=== PATIENT | male | born 1945 | race Caucasian/White ===

== ENCOUNTER → 2018-10-01 | Outpatient (CLI) | payer OTHER ==
[~2018-10-01] MED LIST: HCTZ 25MG TAB25 MG PO; NORCO 325 MG-7.1 TAB PO; PRAVACHOL10 MG PO; PRAVACHOL80 MG PO; PRINIVIL40 MG PO; RAPAFLO8 MG PO; ROXICODONE 55 MG/TAB PO; XARELTO10 MG PO
== END ==
LOC: BHSO 09:47
DX: G47.00 Insomnia, unspecified (principal)

== ENCOUNTER → 2018-11-02 | Outpatient (CLI) | payer OTHER | LOC: BHSO 09:55 | DX: G47.00 Insomnia, unspecified (principal) ==

== ENCOUNTER 2020-06-21 05:30 | Day surgery (SDC) | payer MEDICARE ==
[~2020-06-21] VITALS: Ht 195.8 cm; Wt 109.7 kg
[2020-06-21] MEDS ORDERED: ZESTRIL40 MG PO (18:17)
[2020-06-21] MEDS ORDERED: HCTZ 25MG TAB25 MG PO (18:17)
[2020-06-21] MEDS ORDERED: RAPAFLO8 MG PO (18:17)
[2020-06-21] MEDS ORDERED: MOBIC15 MG PO (18:18)
[2020-06-21] MEDS ORDERED: VITAMIN C500 MG PO (18:18)
[2020-06-21] MEDS ORDERED: PRAVACHOL80 MG PO (18:18)
[2020-06-21] MEDS ORDERED: FERROUSAL325 MG PO (18:18)
[2020-06-21] MEDS ORDERED: FOLIC ACID0.4 MG PO (18:19)
--- NOTE | 2020-06-21 19:30 | NUR ---
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 Assessment complete. A&Ox3. Rating pain 6/10 on pain scale-described as constant throbbing-oxycodone given per dr order. Dressing to left lower extremity CDI-bulky white/dana. SCDs/TEDs bilat. Fresh ice pack applied to site and elevated on pillows. Plan of care discussed for this shift to include HS meds/pain control/ambulation. Verbalizes understanding/denies needs. Call light in reach. Will monitor.
[2020-06-21 20:00] VITALS: BP 122/56; PULSE 67; TEMP 97.9
--- NOTE | 2020-06-21 22:00 | NUR ---
Up to ambulate at this time with gait belt/walker/stand by assist. Ambulated approx 250 feet. Assisted back to bed-left lower extremity elevated on pillows/fresh ice pack applied. Call light in reach. Will monitor.
[2020-06-21 23:24] VITALS: BP 122/56; PULSE 62; TEMP 97.5
--- NOTE | 2020-06-21 23:42 | NUR ---
Called with c/o pain to left lower extremity-described as throbbing-rating pain 11/04. Oxycodone given per dr bernstein.
[2020-06-22] VITALS (7 sets, daily range): BP systolic 125–178; BP diastolic 55–82; PULSE 61–74; TEMP 97.4–98.1
--- NOTE | 2020-06-22 04:00 | NUR ---
Up to bathroom at this time with stand by assist/gait belt/walker. Voided with out difficulty.
--- NOTE | 2020-06-22 05:11 | NUR ---
Verified patient allergies with patient as [place] has been ordered and chart states he is allergic to norco. Patient states he is not allergic to hydrocodone and that it actually helped his pain more than the oxycodone. Allergy removed from record.
[2020-06-22 06:49] LABS: HEMOGLOBIN 10.8 g/dl (13.5-18.0)
[2020-06-22 06:55] LABS: HEMATOCRIT 32.3 % (42.0-52.0)
--- NOTE | 2020-06-22 07:00 | NUR ---
awake resting in bed, bedside shift report received from LISSY Blackwood
--- NOTE | 2020-06-22 07:45 | NUR ---
full assessment completed, have reviewed assessment completed by student and in agreement with that assessment
--- NOTE | 2020-06-22 07:45 | NUR ---
c/o minimal pain to left knee and requesting pain med, medicated with hydrocodone 7.5mg 2 tabs
--- NOTE | 2020-06-22 09:15 | NUR ---
ambulating in [place] with [facility]
--- NOTE | 2020-06-22 11:38 | NUR ---
TORI met with the patient and his , [employer] (ph#[phone]), to discuss discharge plan. The patient lives in [place] with his , Akosua. He reports independence with ADLs and has a walker and crutches. His PCP is Dr. Ana Domingo and he receives his medications from [email or web address]. He reports no difficulties obtaining his meds. The patient does not have a DPOA-HC in EMR, but he states that he does have one completed and at home. He states that his is his DPOA-HC. The patient plans to return home with his and receive outpatient PT at [facility] upon discharge. No additional needs at this time.
--- NOTE | 2020-06-22 13:04 | NUR ---
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 No needs right now.
--- NOTE | 2020-06-22 13:11 | NUR ---
bedside shift report given to LISSY Spicer
--- NOTE | 2020-06-22 13:21 | NUR ---
Received report fron LISSY Aguilar, assumed care of Pt.
--- NOTE | 2020-06-22 13:33 | NUR ---
Patient is currently resting in bed after working with physical therapy and occupational therapy. Pedal pulses are readily palpable. Dressing and incision are clean dry and intact. No further requests at this times. Call light is within easy reach.
--- NOTE | 2020-06-22 13:52 | NUR ---
Pt has C/O pain 8/10, 2 mg morphine given with good results.
--- NOTE | 2020-06-22 16:10 | NUR ---
Rounded on Pt, Pt had C/O pain 12/05, medications were given for relief.
--- NOTE | 2020-06-22 16:30 | NUR ---
Pt had nausea / vomiting, zofran given for relief.
--- NOTE | 2020-06-22 17:48 | NUR ---
Checked Pt, pain level 8/10, medications given for relief.
--- NOTE | 2020-06-22 20:46 | NUR ---
Patient resting in bed ready to go to sleep. States he has not slept well the last couple nights. Patient given extra pillow for his neck. Night medications given. Patient states his pain is tolerable right now but he will call when he needs something for it. Aquacell to left knee clean, dry, and intact. SCDs and teds on. CPAP on. Patient has no other needs at this time. Call light in reach.
[2020-06-23 04:00] VITALS: BP 159/62; PULSE 69; TEMP 97.3
[2020-06-23] MEDS ORDERED: ASPI325T6 PO (06:43)
[2020-06-23] MEDS ORDERED: NORCO 325 MG-7.1 TAB PO (06:44)
[2020-06-23] MEDS ORDERED: ROXICODONE 55 MG/TAB PO (06:44)
[2020-06-23] MEDS ORDERED: SENOKOT S 50 MG1 TAB PO (06:46)
--- NOTE | 2020-06-23 07:20 | NUR ---
Assessment completed. Patient stated "I feel better than I have since I have been here and slept great." Up with assistance to bathroom to void. ambulated well with walker. Eduation provided on increased physical activity to decrease constipation.
[2020-06-23 07:25] VITALS: BP 144/67; PULSE 66; TEMP 97.5
--- NOTE | 2020-06-23 10:31 | NUR ---
CHECKED ON PT AFTER THERAPY AND PT REPORTS PAIN WELL CONTROLLED AT THIS TIME AND DOESNT WANT MEDICATION.
[2020-06-23 12:00] VITALS: BP 132/62; PULSE 65; TEMP 97.8
--- NOTE | 2020-06-23 14:51 | NUR ---
REVIEWED DISCHARGE INSTRUCTIONS WITH PT AND SPOUSE. QUESTIONS ANSWERED.PT TAKEN TO FRONT VIA WC.
== END 2020-06-23 14:10 | disposition home or self-care (01) ==
LOC: SDCO 05:30 → SURG 05:30 → INPTSU 05:30 → EDSTATUS 07:30 → SURG 07:30 → INPTSU 13:00 → SURG 13:00 → SDCO 06-23 14:10 → SURG 06-23 14:10
PROVIDERS: Orthopaedic Surgery
DX: M17.12 Unilateral primary osteoarthritis, left knee (principal); E78.00 Pure hypercholesterolemia, unspecified; I10 Essential (primary) hypertension; G47.33 Obstructive sleep apnea (adult) (pediatric); Z20.822 Contact with and (suspected) exposure to COVID-19; Z87.891 Personal history of nicotine dependence; Z79.899 Other long term (current) drug therapy; Z79.82 Long term (current) use of aspirin; Z88.6 Allergy status to analgesic agent
CPT/HCPCS: OP; A9284; C1776; J0690; J2250; J2270; J2405; J2704; J2765; J3010; J7120

== ENCOUNTER → 2020-07-06 | Outpatient (CLI) | payer MEDICARE ==
[~2020-07-06] MED LIST changes: +ASPI325T6 PO; +FERROUSAL325 MG PO; +FOLIC ACID0.4 MG PO; +LOPRESSOR 225 MG/TAB PO; +MOBIC15 MG PO; +SENOKOT S 50 MG1 TAB PO; +VITAMIN C500 MG PO; +ZESTRIL40 MG PO
== END ==
LOC: COL.RAD
DX: I65.23 Occlusion and stenosis of bilateral carotid arteries (principal); I25.10 Atherosclerotic heart disease of native coronary artery without angina pectoris
CPT/HCPCS: Q9967

== ENCOUNTER 2020-08-26 14:14 | Emergency (ER) | payer MEDICARE ==
[~2020-08-26] VITALS: Ht 195.6 cm; Wt 110.9 kg
[~2020-08-26 14:14] MED LIST changes: -LOPRESSOR 225 MG/TAB PO
[2020-08-26 14:22] VITALS: TEMP 98.2
[2020-08-26 14:49] LABS: BASO # 0.1 (0.0-0.2); BASO % 0.6 % (0.0-2.0); EOS # 0.4 (0.0-0.7); EOS % 4.6 % (0-4.0); GRAN # 5.4 (1.4-6.5); GRAN % 64.6 % (42.2-75.2); HEMATOCRIT 37.2 % (42.0-52.0); HEMOGLOBIN 12.3 g/dl (13.5-18.0); LYMPH # 1.5 (1.2-3.4); LYMPH % 17.7 % (20.0-51.0); MEAN CELL VOLUME 86 fl (80.0-100.0); MEAN CORPUSCULAR HEMOGLOBIN 28 pg (27.0-31.0); MEAN CORPUSCULAR HGB CONC 33 g/dl (33.0-37.0); MEAN PLATELET VOLUME 8.9 fl (7.4-10.4); MONO % 12.3 % (1.7-9.3); PLATELET COUNT 267 K/mm3 (130-400); RED BLOOD COUNT 4.33 M/mm3 (4.20-5.60); REDCELL DISTRIBUTION WIDTH-CV 13.4 % (11.5-14.5)
[2020-08-26 15:03] LABS: ALBUMIN 4.3 gm/dL (3.5-5.0); BILIRUBIN,TOTAL 0.5 mg/dL (0.0-1.0); CALCIUM 9.3 mg/dL (8.4-10.2); CREATININE, serum 0.82 (0.66-1.25); MAGNESIUM 1.8 mg/dL (1.6-2.3); TOTAL PROTEIN 7.9 gm/dL (6.4-8.2)
[2020-08-26 15:13] LABS: TROPONIN-I 0.013 ng/mL (0.000-0.035)
[2020-08-26 15:32] LABS: TSH w REFLEX 5.3 uIU/mL (0.465-4.680)
[2020-08-26] MEDS ORDERED: LOPRESSOR 225 MG/TAB PO (16:51)
[2020-08-26 17:04] VITALS: BP 162/78; PULSE 80
== END 2020-08-26 17:08 | disposition home or self-care (01) ==
LOC: COL.ER 14:14
PROVIDERS: Emergency Medicine
DX: R00.2 Palpitations (principal); Z87.891 Personal history of nicotine dependence; Z79.02 Long term (current) use of antithrombotics/antiplatelets; Z79.82 Long term (current) use of aspirin

== ENCOUNTER → 2021-12-04 | Outpatient (CLI) | payer MEDICARE ==
[~2021-12-04] MED LIST changes: +LOPRESSOR 225 MG/TAB PO
== END ==
LOC: COL.RAD 13:31
DX: M50.11 Cervical disc disorder with radiculopathy, high cervical region (principal); M50.121 Cervical disc disorder at C4-C5 level with radiculopathy; M50.122 Cervical disc disorder at C5-C6 level with radiculopathy; M50.123 Cervical disc disorder at C6-C7 level with radiculopathy; M48.02 Spinal stenosis, cervical region

== ENCOUNTER → 2023-04-08 | Outpatient (CLI) | payer MEDICARE ==
[~2023-04-08] MED LIST changes: +ASPIRIN E.C. 8181 MG PO; +COMPLETE MULTI1 TAB PO; +CRESTOR40 MG PO; +ELIQUIS 5MG PO; +TOPROL XL 50MG50 MG PO
== END ==
LOC: COL.RAD 12:41
DX: M25.552 Pain in left hip (principal)
CPT/HCPCS: J0665; J3301; Q9967

== ENCOUNTER 2023-12-04 05:53 | Emergency (ER) | payer MEDICARE ==
[~2023-12-04] VITALS: Ht 188 cm; Wt 110.5 kg
[2023-12-04 05:56] VITALS: TEMP 98.2
[2023-12-04 06:11] LABS: BASO % 0.7 % (0.0-2.0); EOS # 0.3 K/mm3 (0.0-0.7); EOS % 4.8 % (0.0-4.0); GRAN # 2.5 K/mm3 (1.4-6.5); GRAN % 45.1 % (42.2-75.2); HEMATOCRIT 39.5 % (42.0-52.0); HEMOGLOBIN 13.2 g/dl (13.5-18.0); LYMPH # 2.1 K/mm3 (1.2-3.4); LYMPH % 37.7 % (20.0-51.0); MEAN CELL VOLUME 88 fl (80.0-100.0); MEAN CORPUSCULAR HEMOGLOBIN 30 pg (27-31); MEAN CORPUSCULAR HGB CONC 33 g/dl (33.0-37.0); MEAN PLATELET VOLUME 8.7 fl (7.4-10.4); MONO # 0.6 K/mm3 (0.1-0.6); MONO % 11.7 % (1.7-9.3); PLATELET COUNT 224 K/mm3 (130-400); RED BLOOD COUNT 4.48 M/mm3 (4.20-5.60); REDCELL DISTRIBUTION WIDTH-CV 13.2 % (11.5-14.5)
[2023-12-04] MEDS ORDERED: Metoprolol Tartrate 5 MG/5 ML VIAL IV ONE ×2 (06:15→06:45)
[2023-12-04] MEDS ORDERED: NS 1,000 ML IV ONE (06:15)
[2023-12-04 06:31] LABS: ALANINE AMINOTRANSFERASE 21 U/L (0-55); ALBUMIN 4.2 g/dL (3.4-4.8); ALKALINE PHOSPHATASE 85 U/L (40-150); ANION GAP 12 mmol/L (7-16); AST,SGOT 34 U/L (5-34); BILIRUBIN,TOTAL 0.4 mg/dL (0.2-1.2); BLOOD UREA NITROGEN 23 mg/dL (8-26); CALCIUM 9.7 mg/dL (8.4-10.2); CHLORIDE 104 mEq/L (98-107); CREATININE, serum 0.98 mg/dL (0.72-1.25); GLUCOSE 107 mg/dL (70-99); POTASSIUM 4.4 mEq/L (3.5-4.5); SODIUM 140 mEq/L (136-145); TOTAL PROTEIN 7.8 g/dl (6.2-8.1)
[2023-12-04 06:36] LABS: INR 1.2 (0.8-3.0); PROTHROMBIN TIME 12.8 SECONDS (9.7-12.8)
[2023-12-04 06:51] LABS: TSH w REFLEX 6.634 uIU/mL (0.350-4.940)
[2023-12-04 06:58] LABS: TROPONIN-I < 0.010 ng/mL (0.00-0.033)
[2023-12-04] MEDS ORDERED: TOPROL XL 25MG25 MG PO (07:11)
[2023-12-04 07:25] VITALS: BP 155/83; PULSE 103
== END 2023-12-04 07:25 | disposition home or self-care (01) ==
LOC: COL.ER 05:53
PROVIDERS: Family Medicine
DX: I48.91 Unspecified atrial fibrillation (principal); Z79.01 Long term (current) use of anticoagulants
CPT/HCPCS: J7030